=== PATIENT | female | born 1975 | race Caucasian/White ===

== ENCOUNTER 2021-09-19 19:16 | Emergency (ER) | payer OTHER ==
[~2021-09-19 19:16] MED LIST: MEDROL 4MG DOSEP4 MG PO; PROMETHEGA12.5 MG/SU PR
[2021-09-19 21:30] LABS: BASOPHIL 0.4 % (0-2); HCT 41.3 % (37.0-47.0); HGB 13.9 g/dl (12.5-16.0); LYMPHOCYTE 32.8 % (15-48); MCH 32.3 pg (25.0-31.0); MCHC 33.7 g/dL (32.0-36.0); MONOCYTE 6.9 % (0-12); MPV 9.1 fL (6.0-9.5); NEUTROPHIL 56.8 % (41-80); NRBC 0; PLT 220 K/uL (150-400); RDW 12.7 % (11.5-14.0); WBC 7.4 K/uL (4.0-10.5)
[2021-09-19 21:45] LABS: BUN/CREAT RATIO (CALC) 23.3 RATIO; CREATININE 0.43 mg/dL (0.51-0.95); POTASSIUM 3.7 mmol/L (3.5-5.1)
== END 2021-09-19 22:18 | disposition home or self-care (01) ==
LOC: FER 19:16
PROVIDERS: Nurse Practitioner Family
DX: R60.0 Localized edema (principal); M79.661 Pain in right lower leg; M79.671 Pain in right foot; I10 Essential (primary) hypertension; E78.5 Hyperlipidemia, unspecified; Z88.0 Allergy status to penicillin; Z88.6 Allergy status to analgesic agent; Z88.8 Allergy status to other drugs, medicaments and biological substances; Z88.5 Allergy status to narcotic agent; Z79.899 Other long term (current) drug therapy; Z28.310 Unvaccinated for COVID-19
CPT/HCPCS: 36415; 71045; 80048; 83880; 84484; 85025; 93005; 93971; J1940